=== PATIENT | female | born 2005 | race Caucasian/White ===

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

== ENCOUNTER 2024-07-25 10:20 | Emergency (ER) | payer MEDICAID, SELFPAY ==
--- NOTE | ~2024-07-25 | XR_ITS ---
EXAMINATION: XR FEMUR, RIGHT CLINICAL INFORMATION: Fall. Right pain. COMPARISON: None available. TECHNIQUE: AP and lateral views of the right femur were obtained. FINDINGS: The bones and soft tissues are normal. No fracture. No osseous lesions. XR/XR femur RT 2V IMPRESSION: Unremarkable examination. Electronically signed by: Sanjiv Xiong MD 07/25/2024 01:43 PM [facility]
--- NOTE | ~2024-07-25 | XR_ITS ---
EXAMINATION: XR HUMERUS, RIGHT CLINICAL INFORMATION: Fall. Upper arm pain. COMPARISON: Right shoulder radiographs dated 03/23/2013. TECHNIQUE: AP and lateral views of the right humerus. FINDINGS: The bones and soft tissues are normal. No fracture. Imaged portions of the shoulder and elbow are unremarkable. XR/XR humerus RT IMPRESSION: Unremarkable examination. Electronically signed by: Sanjiv Xiong MD 07/25/2024 01:43 PM [facility]
--- NOTE | ~2024-07-25 | XR_ITS ---
EXAMINATION: XR RIBS, LEFT CLINICAL INFORMATION: Fall. Anterior rib pain. COMPARISON: None available. TECHNIQUE: PA view the chest as well as 3 views of the left ribs. FINDINGS: Lungs are clear. No consolidation, pneumothorax, or pleural effusion. The cardiomediastinal silhouette and pulmonary vasculature are normal. Osseous structures are unremarkable. Ribs are intact. No fractures are identified. XR/XR ribs LT min 3V w CXR1V IMPRESSION: No displaced fracture. Electronically signed by: Sanjiv Xiong MD 07/25/2024 01:44 PM [facility] [place] [place]
[2024-07-25 10:31] VITALS: BP 108/63; PULSE 93; RESP 16; TEMP 36.7; O2SAT 97; BMI 29.1
--- NOTE | 2024-07-25 11:52 | ED_ITS ---
HPI - Fall General Chief Complaint: Fall Stated Complaint: fall, arm/leg pain Time Seen by Provider: 07/25/24 11:40 Source: patient and family (mom) Mode of arrival: ambulatory Limitations: no limitations History of Present Illness ED Provider: AAYAN HOLT PA-C HPI Narrative: 19 year old female with no significant pmhx presents to the ED today for evaluation of left rib pain, right upper arm pain, and right thigh pain s/p mechanical fall yesterday. Patient reports walking down a set of stairs yesterday when her foot slipped, causing her to fall down 3 stairs. She attempted to catch herself with her left arm and fell onto her right side. Denies head strike or LOC. No thinners. Since this time reports pain to the front of her left lower ribs, worse with deep breathing. Also endorses pain to mid upper right arm and mid right thigh. Denies any overlying skin changes or deformities. Reports taking tylenol yesterday with minimal relief. Requesting a note for work as she had to miss her shift today. Denies any other physical complaints. Denies headache, dizziness, vision changes, chest pain, palpitations, SOB, numbness/tingling/weakness of the extremities. Related Data Previous Rx's ?Medication ?Instructions ?Recorded amoxicillin 875 mg-potassium 1 tab PO BID #9 tabs 11/30/23 clavulanate 125 mg tablet Allergies Allergy/AdvReac Type Severity Reaction Status Date / Time No Known Allergies Allergy Verified 07/25/24 10:34 Review of Systems Review of Systems: Constitutional: No fever, chills, fatigue, night sweats, weight changes ENT/Mouth: No ear pain, hearing loss, nasal congestion, sinus pain, rhinorrhea, sore throat Eyes: No eye pain, swelling, redness, vision changes, discharge Cardio: No chest pain, palpitations, BUENO, orthopnea, peripheral edema Pulm: No SOB, cough, sputum, wheezing, dyspnea, hemoptysis GI: No nausea, vomiting, hematemesis, abdominal pain, diarrhea, constipation, hematochezia, melena : No irregular bleeding, dysuria, frequency, urgency, hesitancy, hematuria, flank pain, urinary flow changes, urinary incontinence or retention MSK: No back pain, neck pain, joint pain, myalgias, +left rib pain, +right upper arm pain, +right thigh pain Skin: No lesions, rashes Neuro: No weakness, numbness, paresthesias, LOC, dizziness, headache Psych: No anxiety/panic, depression, SI/HI, AH/VH All other systems reviewed and are negative. [facility] Past Medical History Attestation statement: The following information was validated with the patient. Source: old records reviewed and nursing notes reviewed Social History Social History Advance Directives: No Advance Directives Information Provided: Yes Physical Exam Vital Signs: Vital Signs: Last Vital Signs Temp 98.1 F 07/25/24 14:19 Pulse 93 07/25/24 14:19 Resp 16 07/25/24 14:19 BP 108/63 07/25/24 14:19 Pulse Ox 97 07/25/24 14:19 O2 Del Method Room Air 07/25/24 14:19 BMI result Body Mass Index 29.1 vital signs stable. not hypoxic. General: Well appearing, in no acute distress. Skin: Warm, dry, intact. No rashes or lesions. Head: Normocephalic, atraumatic. EENT: Hearing is intact b/l. Conjunctiva clear. PERRLA. EOM intact. Moist mucous membranes.? Neck: Supple without LAD Cardiac: Chest wall symmetric. RRR. ttp over left anterolateral ribs without palpable deformity or crepitus. no overlying skin changes. no paradoxical movements. Lungs: Normal respiratory effort without accessory muscle use. CTA bilaterally. Abdomen: Soft, non-tender, non-distended. No rebound tenderness or guarding. Positive BS x4. Back: No midline spinous or paraspinal tenderness. No step off deformity. Ext: Slightly tender to palpation over right humerus and right femur without palpable deformity or crepitus. No overlying skin changes. Neurovascularly intact throughout. Neuro: AOx3. Normal speech. Ambulating with steady gait. Psych: Appropriate mood and affect. Responds appropriately to questions. Course Course Course Narrative: xrs negative. likely contusion. reports improvement in pain w/ toradol. Patient has remained stable throughout ED visit today. Discussed worrisome signs and symptoms and when to return to the ED. All questions answered at this time. Patient is agreeable with disposition and stable for discharge. Medications Administered Discontinued Medications Generic Name Dose Route Start Last Admin Trade Name Freq PRN Reason Stop Dose Admin Ketorolac Tromethamine 30 mg 07/25/24 11:58 07/25/24 12:33 Ketorolac Tromethamine 30 Mg/Ml Vial IM 07/25/24 11:59 30 mg ONCE ONE Administration Medical Decision Making Medical Decision Making [facility] Narrative: 19 year old female with no significant pmhx presents to the ED today for evaluation of left rib pain, right upper arm pain, and right thigh pain s/p mechanical fall yesterday. VSS. Not hypoxic. Tenderness to palpation over left anterolateral ribs without palpable deformity, crepitus. No overlying skin changes or deformity. Symmetric rise and fall of chest. Lungs are CTA bilaterally with equal breath sounds. Slightly tender to palpation over right humerus and right femur without palpable deformity. No overlying skin changes. Neurovascularly intact throughout. ambulating with steady gait. Differential diagnosis includes contusion, msk sprain/ strain, fracture. Unlikely flail chest, pneumothorax, compartment syndrome, NV compromise, threat to limb. Plan for xrays, pain control, and re-evaluation. Differential Diagnosis Differential Diagnoses: The differential diagnosis associated with the presentation includes as above. Admission/Observation Not indicated. Independent Interpretation I performed an independent interpretation of an: Plain X-Ray Interpretation: XR right femur w/o fracture XR right humerus w/o fracture XR ribs without fracutre or pneumothorax Radiology Impression Discussion of test interpretation with radiology: I have reviewed the radiologist's reading. Radiologist Impression: EXAMINATION: XR FEMUR, RIGHT CLINICAL INFORMATION: Fall. Right pain. COMPARISON: None available. TECHNIQUE: AP and lateral views of the right femur were obtained. FINDINGS: The bones and soft tissues are normal. No fracture. No osseous lesions. XR/XR femur RT 2V IMPRESSION: Unremarkable examination. Electronically signed by: Sanjiv Xiong MD 07/25/2024 01:43 PM [facility] EXAMINATION: XR HUMERUS, RIGHT CLINICAL INFORMATION: Fall. Upper arm pain. COMPARISON: Right shoulder radiographs dated 03/23/2013. TECHNIQUE: AP and lateral views of the right humerus. FINDINGS: The bones and soft tissues are normal. No fracture. Imaged portions of the shoulder and elbow are unremarkable. XR/XR humerus RT IMPRESSION: Unremarkable examination. Electronically signed by: Sanjiv Xiong MD 07/25/2024 01:43 PM EST RP EXAMINATION: XR RIBS, LEFT CLINICAL INFORMATION: Fall. Anterior rib pain. COMPARISON: None available. TECHNIQUE: PA view the chest as well as 3 views of the left ribs. FINDINGS: Lungs are clear. No consolidation, pneumothorax, or pleural effusion. The cardiomediastinal silhouette and pulmonary vasculature are normal. Osseous structures are unremarkable. Ribs are intact. No fractures are identified. XR/XR ribs LT min 3V w CXR1V IMPRESSION: No displaced fracture. Electronically signed by: Sanjiv Xiong MD 07/25/2024 01:44 PM EST RP Independent Historian Clinical information obtained from an independent historian. History obtained from or confirmed by: Parent (mom) External Record Review External record reviewed: Inpatient record Prescription Management I considered prescription management with: Pain Medication Social Determinants Patient?s care significantly limited by Social Determinants of Health including: Other Social Determinant of Health Critical Care Time Critical Care Time Critical Care Time: No Discharge Plan Discharge Clinical Impression: Contusion of rib on left side, Contusion of right arm, Contusion of right thigh, Fall (on) (from) other stairs and steps, initial encounter Patient Disposition: Home, Self-Care Instructions: Contusion in Adults (ED), Fall Prevention (ED), Rib Contusion (ED) Additional Instructions: You were evaluated in the emergency department today after a fall yesterday. Your x-rays do not exhibit fracture. You likely have a contusion. I recommend you take 600mg ibuprofen every 6 hours or Tylenol 650mg every 6 hours as needed for pain. If needed, you can alternate these medications so that you take one medication every 3 hours. For example, at noon take ibuprofen, then at 3pm take Tylenol, then at 6pm take ibuprofen. Apply ice to the areas for 20 minutes at a time. Follow up with PCP this week. Return with new or worsening symptoms. In the case of an emergency call 911. Prescriptions: No Action amoxicillin-pot clavulanate 875-125 mg tablet 1 tab PO BID Qty: 9 0RF Stand Alone Forms: Work/School Release Interventions: ED Discharge Assessment Last Done: 07/25/24 14:19 Discharge Date/Time: 07/25/24 14:20 Print Language: Burkinan
[2024-07-25] MEDS: Ketorolac Tromethamine 30 MG/ML VIAL IM (12:33)
[2024-07-25 14:19] VITALS: BP 108/63; PULSE 93; RESP 16; TEMP 36.7; O2SAT 97
== END 2024-07-25 14:20 | disposition home or self-care (01) ==
PROVIDERS: Emergency Provider Emergency Medicine
DX: S20.212A Contusion of left front wall of thorax, initial encounter (principal); S40.021A Contusion of right upper arm, initial encounter; S70.11XA Contusion of right thigh, initial encounter; W10.8XXA Fall (on) (from) other stairs and steps, initial encounter; Y93.89 Activity, other specified; Y92.9 Unspecified place or not applicable; Y99.9 Unspecified external cause status
CPT/HCPCS: 71101; 73060; 73552; 96372; 99284; J1885

== ENCOUNTER 2025-02-15 12:16 | Outpatient (REF) | payer MEDICAID, SELFPAY ==
[2025-02-15 13:46] LABS: Anion Gap 12 (12-20); Blood Urea Nitrogen 7 mg/dL (9-16); Calcium 9.3 mg/dL (8.4-10.2); Carbon Dioxide 27 mmol/L (22-29); Chloride 105 mmol/L (96-108); Cholesterol 155 mg/dL (<200); Estimated Glomerular Filt Rate > 60; Glucose Random 88 mg/dL (60-115); HDL Cholesterol 33 mg/dL (>40); LDL Cholesterol Calculated 101 mg/dL (<100); Potassium 4.5 mmol/L (3.3-5.1); Sodium 139 mmol/L (135-145); Triglycerides 105 mg/dL (<150)
[2025-02-15 13:49] LABS: HCG Quantitative < 2 mIU/mL
[2025-02-15 14:08] LABS: HBc Num1 0.08 S/CO (0.00-0.79); HBsAGNum1 0.38 S/CO (0.00-0.99); HIV AB/AG Nonreactive (Nonreactive); HIV Num 1 0.07 S/CO (0.00-0.99); Hepatitis A Antibody IgM 0.16 Index (0-0.79); Hepatitis B Core Antibody Nonreactive (Nonreactive); Hepatitis B Surface Antigen Negative (Negative); ~Hepatitis A Antibody IgM Nonreactive (Nonreactive); ~Hepatitis B Surface Antibody NONREACTIVE (Nonreactive); ~Hepatitis C Antibody Nonreactive (Nonreactive)
[2025-02-15 14:13] LABS: Syphilis Screen Nonreactive (Nonreactive)
== END 2025-02-15 12:17 | disposition home or self-care (01) ==
LOC: HO.HHCL 12:16
PROVIDERS: Visit Provider Registered Nurse
DX: Z30.09 Encounter for other general counseling and advice on contraception (principal)
CPT/HCPCS: 36415; 80048; 80061; 84702; 86704; 86706; 86709; 86780; 86803; 87340; 87389

== ENCOUNTER 2025-03-12 08:35 | Emergency (ER) | payer MEDICAID, SELFPAY ==
[2025-03-12 08:45] VITALS: BP 118/61; PULSE 103; RESP 19; TEMP 36.8; O2SAT 100; BMI 30.1
[2025-03-12 09:05] LABS: IDNOW Serial# 55D5AD1C; Strep A Nucleic Acid Negative (Negative)
--- NOTE | 2025-03-12 10:10 | ED_ITS ---
HPI - General Adult General Chief complaint: General Medical Stated complaint: throat pain Time Seen by Provider: 03/12/25 09:15 Source: patient Mode of arrival: ambulatory Limitations: no limitations History of Present Illness ED Provider: Wong Elizabeth HPI narrative: 19 yold female with no pmh presents to the ED for sore throat for the past 3 days with slight coughing, bodyaches, and chills. Patient denies any chest pain, shortness of breath, dizziness, abdominal pain, genitourinary symptoms, diarrhea, recent travel, or recent hospital admission Related Data Previous Rx's ?Medication ?Instructions ?Recorded amoxicillin 875 mg-potassium 1 tab PO BID #9 tabs 11/08 11/30 clavulanate 125 mg tablet Allergies Allergy/AdvReac Type Severity Reaction Status Date / Time No Known Allergies Allergy Verified 03/12/25 08:47 Review of Systems Review of Systems: sore throat, coughing, or bodyaches Yes all other systems are reviewed and are negative [facility] Social History Social History Smoked in Last 30 Days: No Use of substances other than those prescribed or required for medical reasons: No Advance Directives: No Advance Directives Information Provided: No Do you have a plan to hurt others: No Plan Patient : No Physical Exam ED Vital Signs: Vital Signs - 24 hr 03/12/25 08:45 Temperature 98.2 F Pulse Rate 103 H Respiratory Rate 19 Blood Pressure 118/61 Pulse Oximetry 100 Oxygen Delivery Method Room Air BMI result Body Mass Index 30.1 Const General: cooperative, healthy appearing, comfortable, no acute distress, well developed, alert, awake and Physically active Orientation/consciousness: patient oriented x3 HENMT Head: Yes normal to inspection, Yes No palpable skull fracture present, Yes normocephalic and Yes atraumatic Ears: hearing grossly normal bilaterally, external ears normal, TM's normal bilaterally, TM normal on the right, TM normal on the left, EAC's normal, mastoids normal and no periauricular adenopathy Throat: Yes posterior oropharynx normal, Yes uvula midline and Yes abnormal tonsil (mild redness) Eyes General: appearance normal, both eyes and all related structures Neck Neck: Yes normal visual inspection, Yes full ROM, Yes no lymphadenopathy, Yes no meningeal signs, Yes trachea midline, Yes supple, No anterior neck swelling and No tender Chest Chest palpation & inspection: normal inspection of the chest and normal palpation of entire chest wall Resp Effort & Inspection: normal respiratory effort and able to speak in complete sentences Auscultation: clear to auscultation bilaterally Cardio Jugular venous distension: no JVD Heart sounds: S1 normal heart sound present and S2 normal heart sound present GI Inspection: Yes normal to inspection Palpation (GI): Soft to palpation, not firm, nontender, no guarding and not rigid General: Yes no CVA tenderness Back/Spine/Pelvis Back: no CVA tenderness and No back tenderness Skin General skin exam: no rashes or lesions noted, elasticity normal and turgor normal Neuro General: patient oriented x3, gait normal, tone normal, moves all extremities, Normal light touch and pain sensation, no meningeal signs, no focal motor deficits, CN's II-XI intact bilaterally and normal sensation to monofilament Extrem General: Yes normal to inspection, Yes full ROM and Yes capillary refill normal Psych Appearance: grossly normal, well kempt and not disheveled Medical Decision Making Medical Decision Making [facility] Narrative: 19 yold female presents to the ED for sore throat with cough and bodyaches. not suspecting peritonsillar abscess, baljeet angina, retropharyngeal abscess, pneumonia, respitaroy failure, or any life threatening etiology. Strep negative. 11:01pm: Covid, inflindez, and rSV negative. Patient explained worrisome signs and informed to return to the ED immediately. Patient informed to follow up with primary care provider Differential Diagnosis Differential Diagnoses: The differential diagnosis associated with the presentation includes (COVID, influenza strep) Lab Data [facility] Lab Attestation statement: I reviewed the patient's lab results. Labs: Lab Results 03/12/25 Range/Units 08:52 Influenza Type A (PCR) NEGATIVE (Negative) Influenza Type B (PCR) NEGATIVE (Negative) RSV RNA Qual (PCR) NEGATIVE (Negative) SARS-CoV-2 RNA (RT-PCR) NEGATIVE (Negative) S. pyogenes GrpA AKILAH Negative (Negative) Independent Historian Clinical information obtained from an independent historian. History obtained from or confirmed by: Other (Patient is) Prescription Management I considered prescription management with: Pain Medication Discharge Plan Discharge Clinical Impression: Pharyngitis, URI (upper respiratory infection) Patient Disposition: Home, Self-Care Instructions: Pharyngitis (ED), Upper Respiratory Infection (ED) Additional Instructions: Recommend follow up with the primary care provider. Return to the ED immedia tely for any chest pain, shortness of breath, coughing up blood, weakness, dizziness, or any other concerning symptoms. [id number] Tylenol Motrin can be used for pain relief for fever Prescriptions: No Action amoxicillin-pot clavulanate 875-125 mg tablet 1 tab PO BID Qty: 9 0RF Referrals: Haley De Santiago FNP [Primary Care Provider, Medical] - 2 days Referral Note: Pharyngitis URI Clinical Impression: Pharyngitis Stand Alone Forms: Work/School Release Interventions: ED Discharge Assessment Last Done: 03/12/25 11:10 Discharge Date/Time: 03/12/25 11:11 Print Language: Martiniquais
[2025-03-12 10:54] LABS: Resp Syncy Virus RNA Qual PCR NEGATIVE (Negative); SARS COV2 PCR INHOUSE NEGATIVE (Negative)
[2025-03-12 11:10] VITALS: BP 118/61; PULSE 103; RESP 19; TEMP 36.8; O2SAT 100
== END 2025-03-12 11:11 | disposition home or self-care (01) ==
PROVIDERS: Emergency Provider Emergency Medicine Emergency Medical Services; PCP Registered Nurse
DX: J02.9 Acute pharyngitis, unspecified (principal); J06.9 Acute upper respiratory infection, unspecified; R05.9 Cough, unspecified; R68.83 Chills (without fever)
CPT/HCPCS: 87637; 87651; 99283

== ENCOUNTER 2025-07-11 11:04 | Emergency (ER) | payer MEDICAID, SELFPAY ==
--- NOTE | ~2025-07-11 | US_ITS ---
CLINICAL HISTORY: left lower quadrant pain US pelvis transabdominal and transvaginal with Doppler Comparison: None provided Findings: Transabdominal scanning performed for overall anatomy. Transvaginal scanning performed for additional detail. Uterus measures 7.4 cm x 2.4 cm x 4.3 cm. Normal myometrium. No endometrial lesion, 1 mm thickness. Right ovary 2.1 x 1.6 x 1.4 cm. Left ovary 2.2 x 1.7 x 1.6 cm. Left ovarian follicles. Normal color Doppler with arterial/venous spectral tracing of both ovaries. Minimal free fluid in cul-de-sac likely physiologic. IMPRESSION: 1. Unremarkable pelvic ultrasound with no evidence of ovarian torsion. This document has been electronically signed by: Anita Rucker MD on 07/11/2025 15:29:49
--- NOTE | ~2025-07-11 | CT_ITS ---
CLINICAL HISTORY: LLQ suprapubic pain, neg US, ? APPY CT abdomen and pelvis with contrast Comparison: US/SR - US ABDOMEN LIMITED - 07/18/22 08:33 EST Findings: No consolidation or effusion. Unremarkable gallbladder. No biliary ductal dilatation. The liver, spleen, pancreas, adrenal glands and kidneys are unremarkable. No ureteral stones and no hydronephrosis or hydroureter. No bowel obstruction, pneumoperitoneum, or pneumatosis. No free fluid or loculated fluid collection. Pelvic contents unremarkable. Normal appendix. Abdominal aorta normal in size. The bones are intact. IMPRESSION: No acute findings. This document has been electronically signed by: Anita Rucker MD on 07/11/2025 19:11:06
--- NOTE | 2025-07-11 11:11 | ED_ITS ---
HPI - Abdominal Pain General Chief Complaint: Abdominal Pain Stated Complaint: gallbladder pain Time Seen by Provider: 07/11/25 12:41 Source: patient Mode of arrival: ambulatory Limitations: no limitations History of Present Illness ED Provider: HPI narrative: 20-year-old woman presenting with left lower quadrant abdominal pain, started 3 days ago, coinciding with the. , on control pills, sexually active no vaginal discharge, reported loose stool. Related Data Previous Rx's ?Medication ?Instructions ?Recorded amoxicillin 875 mg-potassium 1 tab PO BID #9 tabs 11/08 11/30 clavulanate 125 mg tablet Allergies Allergy/AdvReac Type Severity Reaction Status Date / Time No Known Allergies Allergy Verified 07/11/25 11:13 Review of Systems Constitutional: Reports as per HPI [facility] Social History Social History Smoked in Last 30 Days: No Use of substances other than those prescribed or required for medical reasons: No Advance Directives: No Advance Directives Information Provided: Yes Physical Exam ED Exam Exam: General: ?Appears of stated age ? ?PERRLA, EOMI, MMM, ? Neck: Supple, no LAD ? ?CV: RRR, no obvious murmurs appreciated ? ?Resp: ?No wheezing rales rhonchi no stridor moving air well ? Abd: Suprapubic and left lower quadrant tenderness, deferred ? ?MSK: FROM, strength 5/5 all extremities ? Skin: Warm, dry, intact, ? ?Neuro: ?Alert and oriented x3, moving upper and lower extremities symmetrically, no obvious facial asymmetry noted, cranial nerves 2-12 intact Vital Signs: Vital Signs - 24 hr 07/11/25 11:12 07/11/25 15:05 07/11/25 18:13 Temperature 97 F 97.7 F Pulse Rate 96 85 81 Respiratory Rate 16 16 16 Blood Pressure 114/63 112/69 105/47 L Pulse Oximetry 97 98 99 Oxygen Delivery Method Room Air Room Air BMI result Body Mass Index 29.7 Course Course Course Narrative: This is a Rapid Medical Exam performed in triage by Charline Sierra PA-C. Full HPI, ROS and PE to be performed by primary ED provider. 20 yo F presenting to the ED c/o LLQ abd pain x3 days w/assoc diarrhea. Currently on menses. denies fever, N/V, urinary sx PE: abdomen soft w/lower > LLQ ttp. no rebound or guarding Plan: labs, UA Medical Decision Making Medical Decision Making [facility] Narrative: Ovarian cysts, ovarian pathology, appendicitis, colitis some of the considerations, urinalysis without any evidence for infection to suspect pyelonephritis or cystitis and she is not to suspect ectopic We will start her on ultrasound to evaluate for ovarian flow, and then depending on the ultrasound may need CT 4:07 PM 07/11/2025 (Dr. Mehran Bautista): Ultrasound negative, she received medications feeling better but still fairly tender in the suprapubic and left lower quadrant, no leukocytosis but I still have a suspicion for appendicitis given the fact that she has suprapubic tenderness Differential Diagnosis Differential Diagnoses: The differential diagnosis associated with the presentation includes Admission/Observation Consideration of admission/observation: Escalation of care including admission/observation considered Lab Data [facility] Lab Attestation statement: I reviewed the patient's lab results. 07/11/25 11:25 07/11/25 11:25 Labs: Lab Results 07/11/25 Range/Units 11:25 WBC 6.2 (4.8-10.8) X10*3/uL RBC 4.72 (4.20-5.50) X10*6/uL Hgb 13.5 (12.0-16.0) g/dl Hct 41.6 (37.0-47.0) % MCV 88.1 (80.0-98.0) fL MCH 28.6 (27.0-33.0) pg MCHC 32.5 (31.0-35.0) g/dl RDW 12.2 (11.0-16.0) % Plt Count 399 (160-400) X10*3/uL MPV 9.7 (9.4-12.3) fL Immature Gran % (Auto) 0.3 (0.0-0.4) % Neut % (Auto) 53.4 (45-73) % Lymph % (Auto) 31.8 (20-40) % [place] % (Auto) 9.2 (2-11) % Eos % (Auto) 4.8 H (0-4) % Baso % (Auto) 0.5 (0-2) % Lymph # (Auto) 2.0 (1.2-4.9) X10*3/uL [place] # (Auto) 0.6 (0.1-1.2) X10*3/uL Eos # (Auto) 0.3 (0.0-0.4) X10*3/uL Baso # (Auto) 0.0 (0.0-0.2) X10*3/uL Abs Immat Gran (auto) 0.02 (0.00-0.03) X10*3/uL Absolute Neuts (auto) 3.3 (2.0-8.3) x10*3/uL Absolute Nucleated RBC 0.000 (0.0-0.012) X10*3/uL Nucleated RBC % (auto) 0.0 (0.0-0.2) /100WBC Sodium 137 (135-145) mmol/L Potassium 4.2 (3.3-5.1) mmol/L Chloride 105 (96-108) mmol/L Carbon Dioxide 24 (22-29) mmol/L Anion Gap 12 (12-20) BUN 9 (9-16) mg/dL Creatinine 0.66 (0.5-1.4) mg/dL Estim Creat Clear Calc 116.9 Estimated GFR > 60 Random Glucose 84 (60-115) mg/dL Calcium 9.3 (8.4-10.2) mg/dL Magnesium 1.9 (1.6-2.6) mg/dL Total Bilirubin 0.6 (0.0-1.0) mg/dL Direct Bilirubin 0.2 (0.0-0.5) mg/dL AST 18 (5-31) U/L ALT 13 (0-31) U/L Alkaline Phosphatase 75 (39-117) U/L Total Protein 8.0 (6.5-8.0) g/dL Albumin 4.4 (3.5-5.0) g/dL Lipase 12 (8-78) U/L Urine Color Yellow Urine Appearance Clear Urine pH 7.0 (5.0-9.0) Ur Specific [place] 1.015 (1.005-1.025) Urine Protein Negative (Neg-Trace) mg/dL Urine Glucose (UA) Negative (Negative) mg/dL Urine Ketones Negative (Negative) mg/dL Urine Blood Large (3+) H (Negative) Urine Nitrite Negative (Negative) Ur Leukocyte Esterase Negative (Negative) Urine RBC 3-5 H (0-2) /HPF Urine WBC 0-5 (0-5) /HPF Ur Squamous Epith Cells 6-10 (0-2) /HPF Urine Bacteria None Seen (None Seen) Hyaline Casts 0-2 (0-2) /LPF Urine Test NEGATIVE (NEGATIVE) Radiology Impression Discussion of test interpretation with radiology: I have reviewed the radiologist's reading. (IMPRESSION: 1. Unremarkable pelvic ultrasound with no evidence of ovarian torsion.) Radiologist Impression: IMPRESSION: No acute findings. This was CT Medications Administered Discontinued Medications Generic Name Dose Route Start Last Admin Trade Name Freq PRN Reason Stop Dose Admin Acetaminophen 975 mg 07/11/25 12:52 07/11/25 13:04 Acetaminophen 325 Mg Tablet PO 07/11/25 12:53 975 mg ONCE ONE Administration Ibuprofen 400 mg 07/11/25 15:10 07/11/25 15:15 Ibuprofen 400 Mg Tablet PO 07/11/25 15:11 400 mg ONCE ONE Administration Iohexol 100 ml 07/11/25 16:56 07/11/25 16:56 Iohexol 350 Mg/Ml 100 Ml Infus..Btl IV 07/11/25 16:57 85 ml ONCE ONE Administration Ketorolac Tromethamine 15 mg 07/11/25 12:52 07/11/25 13:04 Ketorolac Tromethamine 15 Mg/Ml Vial IM 07/11/25 12:53 15 mg ONCE ONE Administration Ketorolac Tromethamine 15 mg 07/11/25 14:58 07/11/25 15:06 Ketorolac Tromethamine 15 Mg/Ml Vial IM 07/11/25 14:59 Not Given ONCE ONE Discharge Plan Discharge Clinical Impression: Left lower quadrant abdominal pain Patient Disposition: Home, Self-Care Additional Instructions: Sorry to have kept you waiting but I want to make sure you do not have an infection ovarian pathology, your ultrasound was unremarkable but you continue to have pain CAT scan was obtained you do not have any abnormalities there, your blood work urinalysis has been reassuring, this is possibly the pain you are having with the your menses, I recommend warm compresses ibuprofen and Tylenol Prescriptions: No Action amoxicillin-pot clavulanate 875-125 mg tablet 1 tab PO BID Qty: 9 0RF Print Language: Macanese
[2025-07-11 11:12] VITALS: BP 114/63; PULSE 96; RESP 16; TEMP 36.1; O2SAT 97; BMI 29.7
--- OUTSIDE RECORDS SUMMARY | 2025-07-11 11:28 | XMS_ITS | Clinical Summary ---
Author Organization [employer] Address [address] [place] [address] Care Team Providers Care Catalogue Librarian Name Role Phone Haley De Santiago MILITARY ADMINISTRATIVE TECHNICIAN Primary Care Provider Allergies No known active allergies Medications ibuprofen 400 MG tablet Take 1 tablet (400 mg) by mouth every 6 (six) hours if needed for moderate pain or fever for up to 30 doses. 30 tablet 3 Active acetaminophen (Tylenol) 500 MG tabletIndications: Viral URI Take 2 tablets (1,000 mg) by mouth every 6 (six) hours if needed for moderate pain or fever for up to 25 doses. 50 tablet 3 Active FLUoxetine (PROzac) 20 MG tablet TAKE 1 AND 1/2 TABLET BY MOUTH AT BEDTIME 4 Active prazosin (Minipress) 1 MG capsule TAKE 1-2 CAPSULE BY MOUTH EVERY NIGHT AT BEDTIME 4 Active fluticasone (Flonase) 50 MCG/ACT nasal sprayIndications:V iral URI USE 1 SPRAY INTO EACH NOSTRIL IN THE MORNING 48 mL 4 Active hydrocortisone 2.5 % creamIndications:R karlene Apply topically 2 times daily. 3.5 g 1 5 Active albuterol (Ventolin HFA) 108 (90 Base) MCG/ACT inhalerIndications :COVID-19 INHALE 2 PUFFS EVERY 4 HOURS IF NEEDED FOR WHEEZING. 18 g 1 5 Active cetirizine (ZyrTEC) 10 MG tabletIndications: Viral URI TAKE 1 TABLET BY MOUTH EVERY DAY IN THE MORNING 90 tablet 1 5 Active Vienva 0.1-20 MG-MCG tabletIndications: Encounter for counseling regarding contraception TAKE 1 TABLET BY MOUTH EVERY DAY 84 tablet 3 5 Active Active Problems Problem Noted Date Diagnosed Date Polyp of gallbladder 10/29/2023 Depressive disorder 10/29/2023 Allergic contact dermatitis due to animal (cat) (dog) dander 02/05/2020 Resolved Problems Problem Noted Date Diagnosed Date Resolved Date Astigmatism 10/29/2023 06/26/2024 Encounters Date Type Department Care Team Description 05/19/2025 3:00 PM EDT Telemedicine [facility] [address] [place] [phone] Haley De Santiago FNP Encounter for counseling regarding contraception (Primary Dx) 05/19/2025 Travel 05/12/2025 Refill [facility] [address] [place] [phone] Haley De Santiago FNP Encounter for counseling regarding contraception 05/12/[address] [phone] Padmini Hickey RN 05/12/2025 Travel 05/08/2025 Refill [facility] [address] [place] [address] Haley De Santiago FNP Viral URI from Last 3 Months Immunizations Immunization Administration Dates Next Due DTaP 06/04/2008, 6,2004,08/31,2004 HPV 9-Valent 01/10/2016,09/08/2015,07/08/2015 Hep A, ped/adol, 2 dose 01/10/2016,07/08/2015 Hep B, Adolescent or Pediatric 2004,2003,2004 Hib (HbOC) 10/22/2006,2004,2004 IPV 06/04/2008, 5,2004,07/04 Influenza Injectable Quadriv alant Preservative Free IIV4 MDCK 05/11/2022 Influenza injectable quadriv alent preservative free 06/18/2023,05/26/2021,06/17/2019,06/09,06/24/2017,06/15/2016,07/08/2015 ,08/16/2014 Influenza live intranasal trivalent 08/08/2012,1 10/03/2007,06/25/2007 Influenza, IIV3, injectable 11/01/2006, 7 Influenza, Injectable, MDCK, preservative free 05/29/2024 Influenza, Split (incl. jennifer fied surface antigen) 06/29/2013 Influenza, live, intranasal 08/08/2012, 8,06/25/2007 MMR 06/04/2008,05/10/2005 Meningococcal MCV4P ACYW-135 05/06/2020,07/08/20 15 Pneumococcal Conjugate PCV 7 10/05/2005, 2004,2004,08/01 Tdap 11/30/2023,07/08/2015 Varicella 06/04/2008,11/15/2005 Social History Tobacco Use Types Packs/Day Years Used Date Smoking Tobacco: Never Smokeless Tobacco: Never Tobacco Cessation:Counseling Given: Not Answered Alcohol Use Standard Drinks/Week Comments Never 0 (1 standard drink = 0.6 oz pur e alcohol) Depression Answer Date Recorded Patient Health Questionnaire-9 Score 0 02/15/2025 Patient Health Questionnaire-9 Score 0 02/15/2025 Last PHQ-9: Questionnaire Data Not on file 0 02/15/2025 Housing Stability Answer Date Recorded What is your housing situation today? I have hali gallagher 02/04/[address] you li ve. Do you have problems with any of the following? None of the above 02/04/2025 Food Insecurity Answer Date Recorded Within the past 12 months, y ou worried that your food would run out before you got money to buy more: Never True 02/04/2025 Within the past 12 months,th e food you bought just didn't last and you didn't have enough money to get more: Never True Transportation Answer Date Recorded In the past 12 months, has l ack of transportation kept you from medical appts, meetings, work or from getting things needed for daily living? No 02/04/2025 Utilities Answer Date Recorded In the past 12 months, has t he electric, gas, oil or water [employer] threatened to shut off services in your home? No 02/04/2025 Depression Answer Date Recorded Patient Health Questionnaire-2 Score 0 02/15/2025 Internet Access Answer Date Recorded Internet Access Q1 Yes 02/04/2025 Internet Access Q2 Not on file 02/04/2025 Comments No Sex and Gender Information Value Date Recorded Sex Assigned at Female 07/09/2022 10:19 AM EDT Legal Sex Female 10:19 AM EDT Gender Identity Female 07/09/2022 10:19 AM EDT Sexual Orientation Straight 07/09/2022 10 :19 AM EDT Last Filed Vital Signs Vital Sign Reading Time Taken Comments Blood Pressure 115/72 03/10/2025 9:06 AM EDT Pulse 112 03/10/2025 9:06 AM EDT Temperature 36.7 C (98 F) 03/10/2025 9:06 AM EDT Respiratory Rate 16 03/10/2025 9:06 AM EDT Oxygen Saturation 96% 03/10/2025 9:06 AM EDT Inhaled Oxygen Concentration - - Weight 69.9 kg (154 lb 3.2 oz) 03/10/2025 9:06 A M EDT Height 152.4 cm (5') 03/10/2025 9:06 AM EDT Body Mass Index 30.12 03/10/2025 9:06 AM EDT Plan of Treatment Health Maintenance Due Date Last Done Comments Chlamydia and Gonorrhea Screening 2004 Family Planning (PISQ) 2019 Meningococcal B Vaccine (1 of 2 - Standard) 2020 Pap Smear 2025 COVID-19 Vaccine (1 - season) 2025 SDOH Screening 02/04/2026 02/04/2025 Alcohol/Substance Use Screening 02/15/2026 02/15/2025 Depression Screening 02/15/2026 02/15/2025, 02/16/20 Disability Screening 05/12/2026 05/12/2025 Tobacco Screening 05/19/2026 05/19/2025 DTaP/Tdap/Td Vaccines (8 - Td or Tdap) 11/29/2033 11/30/2023, 07/08/2015, 06/04/2008, Additional history exists Zoster Vaccines (1 of 2) 2054 RSV Patients and Patients Aged 60 years or older (1 - 1-dose 75+ series) 2079 Hepatitis B Vaccines Completed 2004, 2004, 2004 Pneumococcal Vaccine: Pediatrics (0 to 5 Years) and At-Risk Patients (6 to 49) Years Aged Out 10/05/2005, 2004, 2004, Additional history exists No longer eligible based on patient's age to complete this topic HIB Vaccines Completed 10/22/2006, 0 01/2005, 2004, Additional history exists IPV Vaccines Completed 06/04/2008, 10/11, 2004, Additional history exists HPV Vaccines Completed 01/10/2016, 08/11, 07/08/2015 Hepatitis A Vaccines Completed 01/10/2016, 07/08/20 15 Meningococcal Vaccine Completed 05/06/2020, 015 HIV Screening Completed 02/15/2025 Hepatitis C Screening Completed 02/15/2025 Influenza Vaccine Completed 06/06/2025, , 06/18/2023, Additional history exists RSV under 20 months Aged Out No longe r eligible based on patient's age to complete this topic Rotavirus Vaccines Aged Out No longer eligible based on patient's age to complete this topic Procedures Procedure Name Priority Date/Time Associated Diagnosis Comments HEPATITIS PANEL, GENERAL Routine 02/15/2025 12:18 PM EDT Encounter for counseling regarding contraception HIV 1/2 ANTIGEN/ANTIBODY, FOURTH GENERATION W/RFL Routine 02/15/2025 12:18 PM EDT Encounter for counseling regarding contraception from Last 3 Months or Most Recently Relevant to Health Maintenance Results * Hepatitis A,B,C Profile (02/15/2025 12:18 PM EDT) Hepatitis A IgM Nonreactive Nonreactive [facility] Comment:IgM antibodies to SUMMERS V not detected; does not exclude earlyacute or recovered HAV infection. ~Hepatitis B Surface Antibody NONREACTIVE Nonreactive [facility] Comment:Nonreactive: < 8.00 mIU/mL Hepatitis B Core Antibody Nonreactive Nonreactive [facility] Hepatitis C Antibody Nonreactive Nonreactive [facility] Comment:Antibodies to HCV no t detected; does not exclude early acuteHCV infection. Hepatitis B Surface Ag Negative Negative [facility] Blood Venous blood specimen / Unknown 02/15/2025 12:18 PM EDT 02/15/2025 1:19 PM EDT [facility] LAB BLOOD ORDERABLES Final Re sult Performing Organization Address City/[facility]/ZIP Co de Phone Number [facility] [address] [place] [address] [phone] * HIV-1/2 Antigen and Antibodies, Fourth Generation, with Reflexes (02/15/2025 12:18 PM EDT) [facility] HIV AB/AG Nonreactive Nonreactive [facility] Comment:HIV-1 p24 Ag and/or HIV-1/HIV-2 Ab not detected.A test result that is nonreactive does not exclude thepossibility of exposure to or infection with HIV-1 and/orHIV-2. Nonreactive results in this assay for individualswith prior exposure to HIV-1 and/or HIV-2 may be due toantigen and antibody levels that are below the limit ofdetection of this assay.The [email or web address] HIV Ag/Ab Combo assay result andsupplemental assay results should be interpreted inconjunction with the patient's clinical presentation,history and other laboratory results. If the results areinconsistent with clinical evidence, additional testing issuggested to confirm the result. Blood Venous blood specimen / Unknown 02/15/2025 12:18 PM EDT 02/15/2025 1:19 PM EDT [facility] LAB BLOOD ORDERABLES Final Re sult Performing Organization Address City/[facility]/ZIP Co de Phone Number [facility] [address] [place] [address] [phone] from Last 3 Months or Most Recently Relevant to Health Maintenance Insurance [facility] C3 Care Teams Catalogue Librarian Relationship Specialty Start Date End Date Haley De Santiago FNP [address] [place] [phone] PCP - General Family Medicine 05/08/24
[2025-07-11 11:35] LABS: MANUAL DIFF FLAG NO
[2025-07-11 11:39] LABS: Appearance Urine Clear; Glucose Urine UA Negative (Negative); Hematocrit 41.6 % (37.0-47.0); Hemoglobin 13.5 g/dl (12.0-16.0); Imm Gran Abs Auto 0.02 X10*3/uL (0.00-0.03); Imm Gran Pct Auto 0.3 % (0.0-0.4); Lymphocytes Absolute Auto 2.0 X10*3/uL (1.2-4.9); Mean Corpuscular HGB Conc 32.5 g/dl (31.0-35.0); Mean Corpuscular Hemoglobin 28.6 pg (27.0-33.0); Mean Corpuscular Volume 88.1 fL (80.0-98.0); NRBC Abs Auto 0.000 X10*3/uL (0.0-0.012); NRBC Pct Auto 0.0 /100WBC (0.0-0.2); PH 7.0 (5.0-9.0); Platelet Count 399 X10*3/uL (160-400); Red Blood Count 4.72 X10*6/uL (4.20-5.50); Specific Gravity - Urine 1.015 (1.005-1.025); UMIC TRIGGER UACC YES; White Blood Count 6.2 X10*3/uL (4.8-10.8)
[2025-07-11 11:41] LABS: UPreg QC Valid YES
[2025-07-11 11:56] LABS: Alanine Aminotransferase 13 U/L (0-31); Albumin Level 4.4 g/dL (3.5-5.0); Alkaline Phosphatase 75 U/L (39-117); Anion Gap 12 (12-20); Aspartate Amino Transferase 18 U/L (5-31); Blood Urea Nitrogen 9 mg/dL (9-16); Calcium 9.3 mg/dL (8.4-10.2); Carbon Dioxide 24 mmol/L (22-29); Chloride 105 mmol/L (96-108); Creatinine Clr Calc Pharmacy 116.9; Estimated Glomerular Filt Rate > 60; Lipase 12 U/L (8-78); Magnesium 1.9 mg/dL (1.6-2.6); Potassium 4.2 mmol/L (3.3-5.1); Sodium 137 mmol/L (135-145); Total Protein 8.0 g/dL (6.5-8.0)
[2025-07-11 15:05] VITALS: BP 112/69; PULSE 85; RESP 16; TEMP 36.5; O2SAT 98
[2025-07-11] MEDS: iohexoL 350 MG/ML 100 ML INFUS..BTL IV (16:56)
[2025-07-11 18:13] VITALS: BP 105/47; PULSE 81; RESP 16; O2SAT 99
[2025-07-11 19:35] VITALS: BP 120/71; PULSE 81; RESP 16; TEMP -17.7; TEMP 0; O2SAT 99
== END 2025-07-11 19:36 | disposition home or self-care (01) ==
PROVIDERS: Physician Assistant; Emergency Provider Emergency Medicine; PCP Registered Nurse
DX: R10.32 Left lower quadrant pain (principal); Z79.899 Other long term (current) drug therapy
CPT/HCPCS: 36415; 74177; 76830; 76856; 80048; 80076; 81001; 81025; 83690; 83735; 85025; 93975; 96372; 99284; 99285; J1885; Q9967

== ENCOUNTER → 2025-07-11 12:52 | Outpatient (BNV) | payer MEDICAID, SELFPAY | PROVIDERS: Emergency Provider Emergency Medicine; PCP Registered Nurse; Visit Provider Specialist | DX: R10.32 Left lower quadrant pain (principal); R10.24 Suprapubic pain | CPT/HCPCS: 74177; 93975 ==